=== PATIENT | female | born 1975 | race Caucasian/White ===

== ENCOUNTER 2018-02-10 02:50 | Emergency (ER) | payer MEDICARE, MEDICAID ==
[2018-02-10] MEDS: ACET/BUTAL/CAFF TAB PO (04:13)
== END 2018-02-10 05:34 | disposition home or self-care (01) ==
LOC: FTE 02:50
DX: R51 Headache (principal)
CPT/HCPCS: 70450; 99284-25

== ENCOUNTER → 2018-05-05 | Outpatient (CLI) | payer MEDICARE, OTHER, MEDICAID ==
[2018-05-05 14:56] LABS: ALANINE AMINOTRANSFERASE 16 IU/L (13-69); ALBUMIN 3.2 g/dl (3.3-4.9); ALBUMIN/GLOBULIN RATIO 0.86; ALKALINE PHOSPHATASE 61 IU/L (42-121); ANION GAP 11 (8-16); ASPARTATE AMINO TRANSFERASE 26 IU/L (15-46); BILIRUBIN,INDIRECT 0.1 mg/dl (0-1.1); BILIRUBIN,TOTAL 0.1 mg/dl (0.2-1.3); BLOOD UREA NITROGEN 37 mg/dl (7-20); CALCIUM 9.4 mg/dl (8.4-10.2); CARBON DIOXIDE 20 mmol/L (21-31); CHLORIDE 111 mmol/L (97-110); CHOL/HDL RATIO 2.8 RATIO; CHOLESTEROL 227 mg/dl (100-200); CREATININE 1.78 mg/dl (0.44-1.00); GLUCOSE 92 mg/dl (70-220); HDL CHOLESTEROL 81 mg/dl (34-88); LDL CHOLESTEROL,CALCULATED 126 mg/dl; SODIUM 138 mmol/L (135-144); TOTAL PROTEIN 6.9 g/dl (6.1-8.1); TRIGLYCERIDES 101 mg/dl (0-149)
[2018-05-09 11:16] LABS: CYCLOSPORIN 91 mcg/L
== END | disposition home or self-care (01) ==
LOC: LAB 13:54
DX: Z94.0 Kidney transplant status (principal)
CPT/HCPCS: 80053; 80061; 80158; 82306

== ENCOUNTER 2018-10-16 17:40 | Emergency (ER) | payer MEDICARE, OTHER ==
[2018-10-16 20:09] LABS: URINE BLOOD (Dip) POC 1+ (NEGATIVE); URINE GLUCOSE (Dip) POC Negative (NEGATIVE); URINE KETONES (Dip) POC Negative (NEGATIVE); URINE LEUKOCYTE EST (Dip) POC Negative (NEGATIVE); URINE NITRITE (Dip) POC Negative (NEGATIVE); URINE TOTAL PROTEIN POC 3+ (NEGATIVE)
[2018-10-16] MEDS: morphine 2 MG INJ IV (20:47)
[2018-10-16] MEDS: ONDANSETRON 4 MG INJ IV (20:48)
[2018-10-16 20:52] LABS: ADD MAN DIFF? NO
[2018-10-16 21:07] LABS: WHITE BLOOD COUNT 9.2 10^3/ul (4.8-10.8)
[2018-10-16 21:07] LABS: BASOPHILS % 0.2 % (0.0-2.0); EOSINOPHILS # 0.2 10^3/ul (0.0-0.5); EOSINOPHILS % 2.2 % (0.0-7.0); HEMATOCRIT 35.8 % (37.0-47.0); HEMOGLOBIN 11.8 g/dl (12.0-16.0); LYMPHOCYTES # 3.5 10^3/ul (0.8-2.9); LYMPHOCYTES % 37.6 % (15.0-51.0); MEAN CORPUSCULAR HEMOGLOBIN 31.4 pg (29.0-33.0); MEAN CORPUSCULAR VOLUME 95.2 fl (82.0-101.0); MEAN PLATELET VOLUME 10.5 fl (7.4-10.4); MONOCYTE # 0.7 10^3/ul (0.3-0.9); MONOCYTES % 7.8 % (0.0-11.0); NEUTROPHIL # 4.8 10^3/ul (1.6-7.5); PLATELET COUNT 296 10^3/UL (140-415); RED BLOOD COUNT 3.76 10^6/ul (4.20-5.40); RED CELL DISTRIBUTION WIDTH 13.2 % (11.5-14.5)
[2018-10-16 21:24] LABS: ALANINE AMINOTRANSFERASE 16 IU/L (13-69); ALBUMIN 3.1 g/dl (3.3-4.9); ALBUMIN/GLOBULIN RATIO 0.93; ALKALINE PHOSPHATASE 59 IU/L (42-121); ANION GAP 9 (5-13); ASPARTATE AMINO TRANSFERASE 23 IU/L (15-46); BLOOD UREA NITROGEN 45 mg/dl (7-20); CALCIUM 8.7 mg/dl (8.4-10.2); CARBON DIOXIDE 19 mmol/L (21-31); CHLORIDE 111 mmol/L (97-110); CREATININE 1.61 mg/dl (0.44-1.00); Estimated GFR 35 mL/min (>60); GLUCOSE 95 mg/dl (70-220); LIPASE 149 U/L (23-300); SODIUM 139 mmol/L (135-144); TOTAL PROTEIN 6.4 g/dl (6.1-8.1)
== END 2018-10-16 22:10 | disposition home or self-care (01) ==
LOC: E/R 17:40
DX: R31.9 Hematuria, unspecified (principal); D64.9 Anemia, unspecified; R11.10 Vomiting, unspecified
CPT/HCPCS: 36415; 80053; 81003; 81025; 83690; 85025; 96374; 96375; 99284-25